=== PATIENT | female | born 1965 | race Caucasian/White ===

== ENCOUNTER 2018-05-08 11:11 | Inpatient (IN) | payer OTHER ==
[2018-05-08 11:27] VITALS: BMI 29.9
--- NOTE | 2018-05-08 11:40 | PDOC ---
History of Present Illness - General Chief Complaint: Weakness Stated Complaint: WEAKNESS Time Seen by Provider: 05/08/18 11:39 History Source: Patient Exam Limitations: No Limitations - History of Present Illness Initial Comments: 05/08/18 12:07 53 year old female with past medical history of seizure disorder, severe MR, gastritis, H pylori, urinary incontinence, cholecystectomy presented to emergency department for altered mental status times two days. The medical aid states that normally at baseline she is nonverbal, but that she is able to ambulate on her own unassisted, and that she will feed herself on her own. He states that over the last two days she has not been able to feed herself and have not had the strength to get up and walk around on her own. He states that they have also known a right-sided facial droop and that she is leaning to the right side. He states that he does not know when the first time they discovered this is, that this has happened to her before, when she was admitted to the hospital for sepsis. He states that two days ago she fell, and he does not know if she had hit her head, but that she was discovered with a bleeding lip. Allergies - ibuprofen, ASA Seizure meds: Lamictal 25 mg in AM and 200 mg BID Vempat 100 mg BID Past History - Past Medical History Allergies/Adverse Reactions: Allergies Allergy/AdvReac Type Severity Reaction Status Date / Time aspirin Allergy Verified 05/08/18 11:21 ibuprofen Allergy Verified 05/08/18 11:21 Home Medications: Ambulatory Orders Aripiprazole 10 mg PO DAILY 05/08/18 Clonazepam 0.25 mg PO AM 05/08/18 Lacosamide [Vimpat] 1 each PO BID 05/08/18 Lamotrigine [Lamictal] 25 mg PO AM 05/08/18 Lamotrigine [Lamictal] 200 mg PO BID 05/08/18 Paroxetine HCl 20 mg PO DAILY 05/08/18 levETIRAcetam [Keppra -] 500 mg PO BID 05/08/18 Anemia: Yes COPD: No Seizures: Yes Other medical history: profound MR, scoliosis - Surgical History Cholecystectomy: Yes - Suicide/Smoking/Psychosocial Hx Smoking History: Never smoked Review of Systems - Review of Systems Able to Perform ROS?: Yes Comments:: 05/08/18 12:12 ROM limited to information provided by medical aid. General: denies fever, chills, night sweats, generalized weakness. HEENT: denies sore throat, rhinorrhea, ear pain. Heart: denies chest pain, palpitations, syncope, lower extremity swelling, diaphoresis. Respiratory: denies shortness of breath, cough, sputum production, hemoptysis. Abdomen: denies abdominal pain, nausea, vomiting, diarrhea, constipation, blood in stool. : denies increased urinary frequency, hematuria, flank pain. Musculoskeletal: admits to right arm swelling. Neurological: admits to right facial drooping, altered mental status. Skin: denies rash, laceration, abrasion. *Physical Exam - Vital Signs Last Vital Signs Temp Pulse Resp BP Pulse Ox 60 20 103/47 L 94 L 05/08/18 11:21 05/08/18 11:21 05/08/18 11:21 05/08/18 11:21 - Physical Exam Comments: 05/08/18 12:16 Constitutional: Well-nourished, Well-developed, appearing stated age. leaning to the right. HEENT: head is normocephalic, atraumatic. EOMI. PERRLA. scab to upper lip. Neck: supple. Full ROM. Heart: regular rhythm. no murmurs, rubs or gallops. Lungs: clear to auscultation bilaterally. no crackles, rhonchi or wheezing. no stridor. Abdomen: soft, nontender. normal bowel sounds. no rebound, guarding, masses. Extremities: right arm more swollen than left. Peripheral pulses intact. No lower extremity edema. Neurological: right sided mouth drooping, unable to perform complete neurological examination due to mental status. Psych: awake, sleepy. does not follow commands. nonverbal, at baseline. ED Treatment Course - LABORATORY CBC & Chemistry Diagram: 05/09/18 06:40 05/09/18 06:40 Medical Decision Making - Medical Decision Making 05/08/18 12:27 53 year old female with past medical history of seizure disorder, severe MR, gastritis, H pylori, urinary incontinence, cholecystectomy presented to emergency department for altered mental status x2 days. Nonverbal at baseline. Initial Vital Signs Pulse Resp BP Pulse Ox 60 20 103/47 L 94 L 05/08/18 11:21 05/08/18 11:21 05/08/18 11:21 05/08/18 11:21 No tachycardia. No bradycardia. Hypotensive. - 1L IVF bolus Satting 94% on room air. Concern for ACS/arrythmia - EKG performed at 1225 - rate 59, regulary rhythm, left axis, normal intervals , no acute ST changes. Concern for TIA - Pending CT head - Stroke labs Concern for sepsis - Rectal temp ordered - Pending CBC, UA/UC, blood culture, CXR Concern for electrolyte abnormality - Pending CMP Concern for DVT in right arm - Pending US 05/08/18 13:34 CXR - apical lordotic projection with elevated right hemidiaphragm, clear lung bases and no sign of acute chest process. 05/08/18 14:59 Rectal temperature 96.6F Right arm duplex US - no DVT to right arm. 05/08/18 15:44 Straight cath attempted by RN, was unsuccessful, pt has abnormal anatomy. Straight cath attempted by Dr. Taylor, was unsuccessful. Medical aid states that he has been told that she has abnormal anatomy and a urologist is usually required to catheterize her. Pt's personal urologist paged, Dr. Streeter, at [phone]. CT head report - mild volume loss and ventriculomegaly with moderate dilation of the lateral ventricles. no mass lesion or infarct. no acute intracranial pathology noted. CBC WBC 5.0 K/mm3 (4.0-10.0) 05/08/18 12:45 RBC 4.18 M/mm3 (3.60-5.2) 05/08/18 12:45 Hgb 11.9 GM/dL (10.7-15.3) 05/08/18 12:45 Hct 36.9 % (32.4-45.2) 05/08/18 12:45 MCV 88.3 fl (80-96) 05/08/18 12:45 MCH 28.4 pg (25.7-33.7) 05/08/18 12:45 MCHC 32.2 g/dl (32.0-36.0) 05/08/18 12:45 RDW 14.0 % (11.6-15.6) 05/08/18 12:45 Plt Count 192 K/MM3 (134-434) 05/08/18 12:45 MPV 9.0 fl (7.5-11.1) 05/08/18 12:45 Absolute Neuts (auto) 2.9 K/mm3 (1.5-8.0) 05/08/18 12:45 Neutrophils % 58.0 % (42.8-82.8) 05/08/18 12:45 Lymphocytes % 28.0 % (8-40) 05/08/18 12:45 Monocytes % 7.8 % (3.8-10.2) 05/08/18 12:45 Eosinophils % 5.7 % (0-4.5) H 05/08/18 12:45 Basophils % 0.5 % (0-2.0) 05/08/18 12:45 Nucleated RBC % 0 % (0-0) 05/08/18 12:45 No leukocytosis. No anemia. CMP Lactic Acid 0.9 mmol/L (0.4-2.0) 05/08/18 12:45 Lactate normal. Chemistry hemolyzed, will redraw. 05/08/18 17:34 I spoke with pt's personal urologist, Dr. Streeter, who states that he does not come to [facility]. Urology contact center manager paged. Joiesyn ordered for suspected UTI. CMP Sodium 145 mmol/L (136-145) 05/08/18 15:20 Potassium 4.6 mmol/L (3.5-5.1) 05/08/18 15:20 Chloride 110 mmol/L (98-107) H 05/08/18 15:20 Carbon Dioxide 27 mmol/L (21-32) 05/08/18 15:20 Anion Gap 8 MMOL/L (8-16) 05/08/18 15:20 BUN 18 mg/dL (7-18) 05/08/18 15:20 Creatinine 0.5 mg/dL (0.55-1.3) L 05/08/18 15:20 Creat Clearance w eGFR > 60 (>60) 05/08/18 15:20 Random Glucose 72 mg/dL (74-106) L 05/08/18 15:20 Lactic Acid 0.9 mmol/L (0.4-2.0) 05/08/18 12:45 Calcium 9.3 mg/dL (8.5-10.1) 05/08/18 15:20 Total Bilirubin 0.3 mg/dL (0.2-1) 05/08/18 15:20 AST 57 U/L (15-37) H 05/08/18 15:20 ALT 51 U/L (13-61) 05/08/18 15:20 Alkaline Phosphatase 175 U/L (45-117) H 05/08/18 15:20 Creatine Kinase 608 IU/L (26-192) H 05/08/18 15:20 Creatine Kinase Index 4.0 % (0.0-5.0) 05/08/18 15:20 CK-MB (CK-2) 24.5 ng/mL (0.5-3.6) H 05/08/18 15:20 Troponin I < 0.02 ng/ml (0.00-0.05) 05/08/18 15:20 Total Protein 6.6 g/dl (6.4-8.2) 05/08/18 15:20 Albumin 3.3 g/dl (3.4-5.0) L 05/08/18 15:20 Triglycerides Cancelled 05/08/18 12:45 Cholesterol 224 mg/dL (50-200) H 05/08/18 14:57 Total LDL Cholesterol 124 mg/dL (5-100) H 05/08/18 14:57 HDL Cholesterol 93 mg/dL (40-60) H 05/08/18 14:57 Serum , Qual Negative 05/08/18 12:45 Normal electrolytes. No acute kidney injury. Elevated CK Elevated lipids. 05/08/18 17:53 Dr. Becerra was able to straight cath patient. Urine sample sent to lab. I spoke with admitting resident, Dr. Clark, about the case, pt will be admitted to Dr. Yeh's service. 05/08/18 17:56 Urine Test Results Urine Color Yellow 05/08/18 17:35 Urine Appearance Clear 05/08/18 17:35 Urine pH 6.0 (5.0-8.0) 05/08/18 17:35 Ur Specific [place] 1.019 (1.010-1.035) 05/08/18 17:35 Urine Protein Negative (NEGATIVE) 05/08/18 17:35 Urine Glucose (UA) Negative (NEGATIVE) 05/08/18 17:35 Urine Ketones Negative (NEGATIVE) 05/08/18 17:35 Urine Blood 1+ (NEGATIVE) H 05/08/18 17:35 Urine Nitrite Negative (NEGATIVE) 05/08/18 17:35 Urine Bilirubin Negative (<2.0 mg/dL) 05/08/18 17:35 Ur Leukocyte Esterase 1+ (NEGATIVE) H 05/08/18 17:35 Ur Epithelial Cells Rare /HPF (FEW) 05/08/18 17:35 Urine Mucus Rare 05/08/18 17:35 >100 WBC Urinary tract infection likely. - Pt already received Zosyn. *DC/Admit/Observation/Transfer Diagnosis at time of Disposition: Altered mental status, Urinary tract infection - Discharge Dispostion Condition at time of disposition: Stable Decision to Admit order: Yes - Referrals - Patient Instructions - Post Discharge Activity
[2018-05-08] MEDS ORDERED: SODIUM CHLORIDE 1,000 ML IV SCH (12:15)
[2018-05-08 13:04] LABS: BASO % 0.5 % (0-2.0); EOS % 5.7 % (0-4.5); HEMATOCRIT 36.9 % (32.4-45.2); HEMOGLOBIN 11.9 GM/dL (10.7-15.3); MCH 28.4 pg (25.7-33.7); MCHC 32.2 g/dl (32.0-36.0); MEAN CELL VOLUME 88.3 fl (80-96); MONO % 7.8 % (3.8-10.2); PLATELET COUNT 192 K/MM3 (134-434); RBC 4.18 M/mm3 (3.60-5.2)
[2018-05-08 13:28] LABS: INR 0.88 (0.83-1.09); PROTHROMBIN TIME (PATIENT) 10.4 SEC (9.7-13.0)
--- NOTE | 2018-05-08 13:34 | PDOC ---
Attending Attestation - Resident Resident Name: Sarita South - ED Attending Attestation I have performed the following: I have examined & evaluated the patient, The case was reviewed & discussed with the resident, I agree w/resident's findings & plan, Exceptions are as noted <Radha Taylor - Last Filed: 05/08/18 13:34> - HPI HPI: 05/08/18 13:49 The patient is a 53-year-old female with past medical history significant for MR , and Autism presents from a [facility] with weakness and AMS. As per the aide, the patient is non-verbal and ambulatory at baseline. The patient was able to ambulate to the bathroom and feed herself without assistance. The aide reports he had noticed a change in patients behavior; patient's been endorsing decreased strength with ambulation, unable to feed herself and increased lethargy. The aide reports he has noticed a right-sided facial droop, unknown onset. The aide reports swelling to the upper extremity, with R. more than L. The aide reports a similar incident about a year prior when the patient was septic. Allergies: ASA and ibuprofen. Social history: No past or present use of tobacco reported. Surgical history: Cholecystectomy PCP: None reported. - Medical Decision Making 05/08/18 13:49 Documentation prepared by Lina Blue, acting as medical collector for Radha aTylor MD. 05/08/18 15:42 Called placed to urologist Dr. Lin ([phone]), at 3:41pm. <Lina Blue - Last Filed: 05/08/18 15:42>
[2018-05-08 16:01] LABS: CHOLESTEROL 224 mg/dL (50-200); HDL CHOLESTEROL 93 mg/dL (40-60)
[2018-05-08 17:21] LABS: ALBUMIN 3.3 g/dl (3.4-5.0); ALK PHOS 175 U/L (45-117); ANION GAP 8 MMOL/L (8-16); BILIRUBIN,TOTAL 0.3 mg/dL (0.2-1); BLOOD UREA NITROGEN 18 mg/dL (7-18); CALCIUM 9.3 mg/dL (8.5-10.1); CHLORIDE 110 mmol/L (98-107); CO2 27 mmol/L (21-32); CREATININE 0.5 mg/dL (0.55-1.3); GLUCOSE,RANDOM 72 mg/dL (74-106); POTASSIUM 4.6 mmol/L (3.5-5.1); SGOT/AST 57 U/L (15-37); SGPT/ALT 51 U/L (13-61); SODIUM 145 mmol/L (136-145); TOT PROT 6.6 g/dl (6.4-8.2)
[2018-05-08] MEDS ORDERED: PIPERACILLIN/TAZOB 3.375 GM 3.375 GM in DEXTROSE 5%-WATER - 50 ML IVPB ONE (17:23)
[2018-05-08] MEDS ORDERED: LACTATED RINGERS SOLUTION 1,000 ML IV SCH (17:45)
[2018-05-08 18:04] LABS: URINE APPEARANCE CLEAR; URINE BILIRUBIN NEGATIVE (<2.0 mg/dL); URINE COLOR YELLOW; URINE GLUCOSE (UA) NEGATIVE (NEGATIVE); URINE KETONE NEGATIVE (NEGATIVE); URINE LEUK ESTERASE 1+ (NEGATIVE); URINE NITRITE NEGATIVE (NEGATIVE); URINE PROTEIN NEGATIVE (NEGATIVE); URINE UROBILINOGEN NEGATIVE mg/dL (0.2-1.0)
[2018-05-08] MEDS ORDERED: PIPERACILLIN/TAZOB 3.375 GM 3.375 GM/50 ML BAG IVPB ONE ×2 (18:05→21:30)
[2018-05-08 18:07] LABS: EPI CELLS RARE /HPF (FEW); URINE MUCUS RARE
--- NOTE | 2018-05-08 18:38 | PN ---
Teaching Attending Note Name of Resident: Sebastian Clark ATTENDING PHYSICIAN STATEMENT I saw and evaluated the patient. I reviewed the resident's note and discussed the case with the resident. I agree with the resident's findings and plan as documented. HPI is per aid at bedside as pt is nonverbal [facility]IVE[facility]53[facility], [facility], Domenic, urinary incontinence with frequent UTI presented to the ER [facility] altered mental status for the past 2 days. at baseline she is able to feed herself and able to walk with some assistance, neither of which she has been able to do. On Friday (05/04 ) she had a witnessed seizure. Friday (05/06) she fell out of the bed striking her face on the floor sustaining a swollen and bleeding upper lip. went to [facility] where she was evaluated in the ER with imaging and sent home. It has been improving with ice packets. as per aid she is noverbal. usually grimaces a lot and grunts. currently she has returned to her baseline. denies Cp , SOB, fever, chills, N/V/C/D. has not seem to have anything bothering her. does not know the last time she was treated for a UTI OBJECTIVE: Last Vital Signs Temp Pulse Resp BP Pulse Ox 95.6 F L 68 18 108/49 L 98 05/08/18 16:01 05/08/18 14:00 05/08/18 14:00 05/08/18 14:00 05/08/18 14:00 General NAD, nonverbal. HEENT swollen upper lip. abrasion noted to R upper outer 1/3 no active bleeding CV S1 S2 RRR no murmur/rub/gallop Lungs CTA B/L no wheezing/rales/rhonchi Abdomen soft NT/ND no suprapubic tenderness or distention Extremities trace pitting edema ASSESSMENT AND PLAN: 53[facility], [facility], Domenic, urinary incontinence with frequent UTI presented to the ER [facility] altered mental status for the past 2 days and noted to be hypothermia with suspected UTI 1. UTI- Hypothermic at 95.6. will need a christiane hugger. Urology came to [facility] due to abnormal anatomy was unable to place by ER staff. started on Zosyn in the ER. cont NS at 83cc/H. ID consult. f/u Cx. doppler neg for DVT. CXR negative for infection. requested aid to bring in previous Cx reports if they have them at the facility 2. Acute metabolic encephalopathy- likely due to infection and dehydration. Head CT negative for acute pathology. as per aid her mental status is back to baseline 3. Seizure- last seizure noted to be Friday. likely breakthrough due to infection. no adjustments made to medication. cont home medications 4. MR 5. Hpylori- unclear if it has been treated 6. DVT ppx- lovenox
--- NOTE | 2018-05-08 19:03 | HP ---
CHIEF COMPLAINT: AMS HISTORY OF PRESENT ILLNESS: 53 year old female with a history of seizures, MR, gastritis (H pylori), urinary incontinence, multiple UTIs, presents to the hospital for altered mental status 2 days duration. Patient's aid states that at baseline, patient is non-verbal but is able to ambulate with an abnormal gait and can feed herself. Aid noticed that patient was not able to feed herself and felt too weak to move, and so they brought patient to emergency department as this was off her baseline. Per aid, patient has a R sided facial droop around the upper lip which he states has occurred in the past when patient was "septic" from UTIs. Reports that patient has had a seizure on Friday and fell on Friday ( injuring her upper lip). Denies any nausea vomiting/diarrhea, fevers, chills. Reports that this has happened in the past. Reports that while the patient has been here, she is currently at her baseline. Aid denied sick contacts. ER course was notable for: (1) CK 608 (2) Temp 95.6 --> repeated 95.2 (3) Recent Travel: denies PAST MEDICAL HISTORY: as stated above PAST SURGICAL HISTORY: cholecystectomy Social History: Smoking: never Alcohol: never Drugs: never Family History: unknown Allergies aspirin Allergy (Verified 05/08/18 11:21) ibuprofen Allergy (Verified 05/08/18 11:21) HOME MEDICATIONS: Home Medications Medication Instructions Recorded Lacosamide [Vimpat] 1 each PO BID 05/08/18 Lamotrigine [Lamictal] 25 mg PO AM 05/08/18 Lamotrigine [Lamictal] 200 mg PO BID 05/08/18 REVIEW OF SYSTEMS CONSTITUTIONAL: Absent: fever, chills, diaphoresis, generalized weakness, malaise, loss of appetite, weight change HEENT: Absent: rhinorrhea, nasal congestion, throat pain, throat swelling, difficulty swallowing, mouth swelling, ear pain, eye pain, visual changes CARDIOVASCULAR: Absent: chest pain, syncope, palpitations, irregular heart rate, lightheadedness , peripheral edema RESPIRATORY: Absent: cough, shortness of breath, dyspnea with exertion, orthopnea, wheezing, stridor, hemoptysis GASTROINTESTINAL: Absent: abdominal pain, abdominal distension, nausea, vomiting, diarrhea, constipation, melena, hematochezia GENITOURINARY: Absent: dysuria, frequency, urgency, hesitancy, hematuria, flank pain, genital pain MUSCULOSKELETAL: Absent: myalgia, arthralgia, joint swelling, back pain, neck pain SKIN: Absent: rash, itching, pallor HEMATOLOGIC/IMMUNOLOGIC: Absent: easy bleeding, easy bruising, lymphadenopathy, frequent infections ENDOCRINE: Absent: unexplained weight gain, unexplained weight loss, heat intolerance, cold intolerance NEUROLOGIC: Absent: headache, focal weakness or paresthesias, dizziness, unsteady gait, seizure, mental status changes, bladder or bowel incontinence PSYCHIATRIC: Absent: anxiety, depression, suicidal or homicidal ideation, hallucinations. PHYSICAL EXAMINATION Vital Signs - 24 hr 05/08/18 05/08/18 05/08/18 11:21 11:40 14:00 Temperature 96.6 F L Pulse Rate 60 Pulse Rate [ 68 Right] Respiratory 20 18 Rate Blood Pressure 103/47 L Blood Pressure 108/49 L [Right Arm] O2 Sat by Pulse 94 L 98 98 Oximetry (%) 05/08/18 05/08/18 16:01 18:38 Temperature 95.6 F L 95.2 F L Pulse Rate Pulse Rate [ Right] Respiratory Rate Blood Pressure Blood Pressure [Right Arm] O2 Sat by Pulse Oximetry (%) GENERAL: A&Ox0, no acute distress EYES: PERRLA, EOMI ENT: Moist mucus membranes, poor dentition, non-bleeding bruise noted on upper lip NECK: No JVD LUNGS: CTA, no wheezes HEART: RRR, systolic murmur noted on exam ABDOMEN: Soft, nontender, BS present EXTREMITIES: 2+ pulses, no edema, no skin rashes NEUROLOGICAL: reflexes 2/4, unable to assess cranial nerves Laboratory Results - last 24 hr 05/08/18 05/08/18 05/08/18 12:45 12:45 12:45 WBC 5.0 RBC 4.18 Hgb 11.9 Hct 36.9 MCV 88.3 MCH 28.4 MCHC 32.2 RDW 14.0 Plt Count 192 MPV 9.0 Absolute Neuts (auto) 2.9 Neutrophils % 58.0 Lymphocytes % 28.0 Monocytes % 7.8 Eosinophils % 5.7 H Basophils % 0.5 Nucleated RBC % 0 PT with INR 10.40 INR 0.88 Sodium Potassium Chloride Carbon Dioxide Anion Gap BUN Creatinine Creat Clearance w eGFR Random Glucose Lactic Acid Calcium Total Bilirubin AST ALT Alkaline Phosphatase Creatine Kinase Creatine Kinase Index CK-MB (CK-2) Troponin I Total Protein Albumin Triglycerides Cholesterol Total LDL Cholesterol HDL Cholesterol Serum , Qual Negative Urine Color Urine Appearance Urine pH Ur Specific [place] Urine Protein Urine Glucose (UA) Urine Ketones Urine Blood Urine Nitrite Urine Bilirubin Urine Urobilinogen Ur Leukocyte Esterase Urine WBC (Auto) Urine RBC (Auto) Ur Epithelial Cells Urine Mucus Blood Type Antibody Screen 05/08/18 05/08/18 05/08/18 12:45 12:45 12:45 WBC RBC Hgb Hct MCV MCH MCHC RDW Plt Count MPV Absolute Neuts (auto) Neutrophils % Lymphocytes % Monocytes % Eosinophils % Basophils % Nucleated RBC % PT with INR INR Sodium Cancelled Potassium Cancelled Chloride Cancelled Carbon Dioxide Cancelled Anion Gap Cancelled BUN Cancelled Creatinine Cancelled Creat Clearance w eGFR Cancelled Random Glucose Cancelled Lactic Acid 0.9 Calcium Cancelled Total Bilirubin Cancelled AST Cancelled ALT Cancelled Alkaline Phosphatase Cancelled Creatine Kinase Cancelled Creatine Kinase Index CK-MB (CK-2) Troponin I Cancelled Total Protein Cancelled Albumin Cancelled Triglycerides Cancelled Cholesterol Cancelled Total LDL Cholesterol Cancelled HDL Cholesterol Cancelled Serum , Qual Urine Color Urine Appearance Urine pH Ur Specific [place] Urine Protein Urine Glucose (UA) Urine Ketones Urine Blood Urine Nitrite Urine Bilirubin Urine Urobilinogen Ur Leukocyte Esterase Urine WBC (Auto) Urine RBC (Auto) Ur Epithelial Cells Urine Mucus Blood Type O POSITIVE Antibody Screen Negative 05/08/18 05/08/18 05/08/18 14:57 14:57 15:20 WBC RBC Hgb Hct MCV MCH MCHC RDW Plt Count MPV Absolute Neuts (auto) Neutrophils % Lymphocytes % Monocytes % Eosinophils % Basophils % Nucleated RBC % PT with INR INR Sodium 145 Potassium 4.6 Chloride 110 H Carbon Dioxide 27 Anion Gap 8 BUN 18 Creatinine 0.5 L Creat Clearance w eGFR > 60 Random Glucose 72 L Lactic Acid Calcium 9.3 Total Bilirubin 0.3 AST 57 H ALT 51 Alkaline Phosphatase 175 H Creatine Kinase Cancelled 608 H Creatine Kinase Index 4.0 CK-MB (CK-2) 24.5 H Troponin I Cancelled < 0.02 Total Protein 6.6 Albumin 3.3 L Triglycerides Cholesterol 224 H Total LDL Cholesterol 124 H HDL Cholesterol 93 H Serum , Qual Urine Color Urine Appearance Urine pH Ur Specific [place] Urine Protein Urine Glucose (UA) Urine Ketones Urine Blood Urine Nitrite Urine Bilirubin Urine Urobilinogen Ur Leukocyte Esterase Urine WBC (Auto) Urine RBC (Auto) Ur Epithelial Cells Urine Mucus Blood Type Antibody Screen 05/08/18 05/08/18 15:20 17:35 WBC RBC Hgb Hct MCV MCH MCHC RDW Plt Count MPV Absolute Neuts (auto) Neutrophils % Lymphocytes % Monocytes % Eosinophils % Basophils % Nucleated RBC % PT with INR INR Sodium Potassium Chloride Carbon Dioxide Anion Gap BUN Creatinine Creat Clearance w eGFR Random Glucose Lactic Acid Calcium Total Bilirubin AST ALT Alkaline Phosphatase Creatine Kinase Creatine Kinase Index Cancelled CK-MB (CK-2) Cancelled Troponin I Total Protein Albumin Triglycerides Cholesterol Total LDL Cholesterol HDL Cholesterol Serum , Qual Urine Color Yellow Urine Appearance Clear Urine pH 6.0 Ur Specific [place] 1.019 Urine Protein Negative Urine Glucose (UA) Negative Urine Ketones Negative Urine Blood 1+ H Urine Nitrite Negative Urine Bilirubin Negative Urine Urobilinogen Negative Ur Leukocyte Esterase 1+ H Urine WBC (Auto) >100 Urine RBC (Auto) 22 Ur Epithelial Cells Rare Urine Mucus Rare Blood Type Antibody Screen ASSESSMENT/PLAN: 53 year old female with a history of seizures, MR, gastritis (H pylori), urinary incontinence, multiple UTIs, presents to the hospital for altered mental status 2 days duration. #Hypothermia: likely 2/2 UTI -patient does not meet sepsis criteria -will hydrate with LR @ 83cc/hr -zosyn 3.375 Q6h -ID consulted -christiane french ordered -monitor temperature #Altered mental status: patient is currently at baseline -monitor mental status #Seizure disorder: chronic -restart lamictal and vimpat -restart keppra 500 BID #Anxiety: -clonazepam 0.25 at 4pm -paroxetine 20mg daily -aripiprazole 10mg daily #FEN -LR @ 83cc/hr -no standing fluids -bedside swallow and restart diet, can give meds #Prophylaxis -lovenox #Disposition -admit med surg Visit type - Emergency Visit Emergency Visit: Yes Care time: The patient presented to the Emergency Department on the above date and was hospitalized for further evaluation of their emergent condition. - New Patient This patient is new to me today: Yes Date on this admission: 05/08/18 - Critical Care Critical Care patient: No
[2018-05-08] MEDS ORDERED: levETIRAcetam 500 MG TABLET (FP) PO ONE (21:29)
[2018-05-08] MEDS ORDERED: LACOSAMIDE 50 MG TABLET PO ONE (21:29)
[2018-05-08] MEDS ORDERED: LACOSAMIDE PO SCH (22:00)
[2018-05-08] MEDS: PIPERACILLIN/TAZOB 3.375 GM 3.375 GM in DEXTROSE 5%-WATER - 50 ML IVPB SCH (22:00)
[2018-05-08] MEDS: LACOSAMIDE 50 MG TABLET PO SCH (22:15)
[2018-05-08] MEDS: levETIRAcetam 500 MG TABLET (FP) PO SCH (22:15)
[2018-05-09] MEDS: PIPERACILLIN/TAZOB 3.375 GM 3.375 GM in DEXTROSE 5%-WATER - 50 ML IVPB SCH ×3 (03:10→16:25)
[2018-05-09 07:51] LABS: HEMATOCRIT 30.4 % (32.4-45.2); MCHC 32.9 g/dl (32.0-36.0); MEAN CELL VOLUME 88.1 fl (80-96); MEAN PLT VOLUME 8.8 fl (7.5-11.1); PLATELET COUNT 176 K/MM3 (134-434); RBC 3.45 M/mm3 (3.60-5.2); RDW 13.8 % (11.6-15.6); WHITE BLOOD COUNT 4.8 K/mm3 (4.0-10.0)
[2018-05-09 08:33] LABS: ALK PHOS 150 U/L (45-117); ANION GAP 7 MMOL/L (8-16); BILIRUBIN,TOTAL 0.7 mg/dL (0.2-1); BLOOD UREA NITROGEN 16 mg/dL (7-18); CALCIUM 8.3 mg/dL (8.5-10.1); CHLORIDE 108 mmol/L (98-107); CO2 29 mmol/L (21-32); CREATININE 0.6 mg/dL (0.55-1.3); GLUCOSE,RANDOM 61 mg/dL (74-106); MAGNESIUM 1.7 mg/dL (1.8-2.4); PHOSPHOROUS 4.4 mg/dL (2.5-4.9); POTASSIUM 3.9 mmol/L (3.5-5.1); SGOT/AST 45 U/L (15-37); SGPT/ALT 42 U/L (13-61); SODIUM 144 mmol/L (136-145); TOT PROT 5.8 g/dl (6.4-8.2)
[2018-05-09] MEDS ORDERED: DEXTROSE 5%-WATER - 50 ML IVPB ONE ×3 (09:12→16:32)
[2018-05-09] MEDS ORDERED: PARoxetine HCL 10 MG TABLET (FP) ONE (09:12)
[2018-05-09] MEDS ORDERED: PIPERACILLIN/TAZOBACTAM 3.375 GM VIAL IVPB ONE ×2 (09:12→13:36)
--- NOTE | 2018-05-09 10:10 | PN ---
Progress Note (short form) - Note Progress Note: resting comfortable Current Medications Generic Name Dose Route Start Last Admin Trade Name Ketnonq PRN Reason Stop Dose Admin Aripiprazole 10 mg 05/09/18 10:00 Abilify PO DAILY MERYL Clonazepam 0.25 mg 05/09/18 07:00 Klonopin - PO AM MERYL Enoxaparin Sodium 40 mg 05/09/18 10:00 Lovenox - SQ DAILY MERYL Sodium Chloride 1,000 mls @ 42 mls/hr 05/08/18 12:15 05/08/18 13:08 Normal Saline - IV 42 mls/hr ASDIR MERYL Administration Piperacillin Sod/Tazobactam 50 mls @ 100 mls/hr 05/08/18 21:00 05/09/18 03:10 Sod 3.375 gm/ Dextrose IVPB 100 mls/hr Q6H-IV MERYL Administration Protocol Lacosamide 100 mg 05/08/18 22:00 05/08/18 22:15 Vimpat - PO 100 mg BID MERYL Administration Lamotrigine 25 mg 05/09/18 07:00 Lamictal - PO AM MERYL Lamotrigine 200 mg 05/09/18 10:00 Lamictal - PO BID MERYL Levetiracetam 500 mg 05/08/18 22:00 05/08/18 22:15 Keppra - PO 500 mg BID MERYL Administration Paroxetine HCl 20 mg 05/09/18 10:00 Paxil - PO DAILY MERYL Last Vital Signs Temp Pulse Resp BP Pulse Ox 99.5 F 77 16 114/64 94 L 05/09/18 04:06 05/09/18 04:06 05/09/18 04:06 05/09/18 04:06 05/09/18 04:06 General NAD, nonverbal. HEENT swollen upper lip. abrasion noted to R upper outer 1/3 no active bleeding CV S1 S2 RRR no murmur/rub/gallop Lungs CTA B/L no wheezing/rales/rhonchi Abdomen soft NT/ND no suprapubic tenderness or distention Extremities no pitting edema CBCD WBC 4.8 K/mm3 (4.0-10.0) 05/09/18 06:40 RBC 3.45 M/mm3 (3.60-5.2) L 05/09/18 06:40 Hgb 10.0 GM/dL (10.7-15.3) L 05/09/18 06:40 Hct 30.4 % (32.4-45.2) L D 05/09/18 06:40 MCV 88.1 fl (80-96) 05/09/18 06:40 MCHC 32.9 g/dl (32.0-36.0) 05/09/18 06:40 RDW 13.8 % (11.6-15.6) 05/09/18 06:40 Plt Count 176 K/MM3 (134-434) 05/09/18 06:40 MPV 8.8 fl (7.5-11.1) 05/09/18 06:40 CMP Sodium 144 mmol/L (136-145) 05/09/18 06:40 Potassium 3.9 mmol/L (3.5-5.1) 05/09/18 06:40 Chloride 108 mmol/L (98-107) H 05/09/18 06:40 Carbon Dioxide 29 mmol/L (21-32) 05/09/18 06:40 Anion Gap 7 MMOL/L (8-16) L 05/09/18 06:40 BUN 16 mg/dL (7-18) 05/09/18 06:40 Creatinine 0.6 mg/dL (0.55-1.3) 05/09/18 06:40 Creat Clearance w eGFR > 60 (>60) 05/09/18 06:40 Calcium 8.3 mg/dL (8.5-10.1) L 05/09/18 06:40 Total Bilirubin 0.7 mg/dL (0.2-1) 05/09/18 06:40 AST 45 U/L (15-37) H 05/09/18 06:40 ALT 42 U/L (13-61) 05/09/18 06:40 Alkaline Phosphatase 150 U/L (45-117) H 05/09/18 06:40 Total Protein 5.8 g/dl (6.4-8.2) L 05/09/18 06:40 Albumin 3.0 g/dl (3.4-5.0) L 05/09/18 06:40 ASSESSMENT AND PLAN: 53[facility], MR, Hpylori, urinary incontinence with frequent UTI presented to the ER [facility] altered mental status for the past 2 days and noted to be hypothermia with suspected UTI 1. UTI- normothermic. clinically improved. cont zosyn day 2. d/c IVF. f/u Cx. ID consulted. 2. Acute metabolic encephalopathy- likely due to infection and dehydration. Head CT negative for acute pathology. is alert. appears to be at baseline. 3. hypomagnesemia- Mg po 4. Seizure- last seizure noted to be Friday. likely breakthrough due to infection. no adjustments made to medication. cont home medications 5. MR 6. Hpylori- unclear if it has been treated 7. DVT ppx- lovenox Visit type - Emergency Visit Emergency Visit: Yes ED Registration Date: 05/08/18 Care time: The patient presented to the Emergency Department on the above date and was hospitalized for further evaluation of their emergent condition. - New Patient This patient is new to me today: No - Critical Care Critical Care patient: No - Discharge Referral Referred to [facility] Med P.C.: No
[2018-05-09] MEDS ORDERED: MAGNESIUM OXIDE 400 MG TABLET (FP) PO ONE (10:32)
[2018-05-09] MEDS: LACOSAMIDE 50 MG TABLET PO SCH ×2 (10:58→21:55)
[2018-05-09] MEDS: PARoxetine HCL 20 MG TABLET (FP) PO SCH (10:58)
[2018-05-09] MEDS: lamoTRIgine 100 MG TABLET (FP) PO SCH ×2 (10:59→21:56)
[2018-05-09] MEDS: levETIRAcetam 500 MG TABLET (FP) PO SCH ×2 (10:59→21:55)
[2018-05-09] MEDS: ENOXAPARIN NA (PORCINE) 40 MG/0.4 ML DISP.SYRIN SQ SCH (10:59)
[2018-05-09] MEDS: clonazePAM 0.5 MG TABLET PO SCH (10:59)
[2018-05-09] MEDS: lamoTRIgine 25 MG TABLET PO SCH (11:00)
--- NOTE | 2018-05-09 15:06 | CON.ID ---
Consult Consult Specialty:: infectious disease Referred by:: hospitalist Reason for Consultation:: uti - History of Present Illness Chief Complaint: lethargy History of Present Illness: 53 yo female with seizure disorder/MR/autism admitted with lethargy and hypothermia she had a seizure on Friday and was evaluated at [facility] and dischareged home she was noted to be lethargic and brought to [facility] w/ in Ed notable for UTI hypothermia now resolved per nurse ate lunch aide reports back at baseline no fevers has been on zosyn for 24 hours history of frequent utis nonverbal at baseline - History Source History Provided By: Medical Record Limitations to Obtaining History: Clinical Condition - Past Medical History 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, Other (MR/autism) Renal/: Yes: UTI, Other (urinary incontinence) - Past Surgical History Past Surgical History: Yes: Cholecystectomy - Alcohol/Substance Use Hx Alcohol Use: No History of Substance Use: reports: None - Smoking History Smoking history: Never smoked - Social History Usual Living Arrangement: Assisted Living ADL: Support Services History of Recent Travel: No Home Medications - Allergies Allergies/Adverse Reactions: Allergies Allergy/AdvReac Type Severity Reaction Status Date / Time aspirin Allergy Verified 05/08/18 11:21 ibuprofen Allergy Verified 05/08/18 11:21 - Home Medications Home Medications: Ambulatory Orders Aripiprazole 10 mg PO DAILY 05/08/18 Clonazepam 0.25 mg PO AM 05/08/18 Lacosamide [Vimpat] 1 each PO BID 05/08/18 Lamotrigine [Lamictal] 25 mg PO AM 05/08/18 Lamotrigine [Lamictal] 200 mg PO BID 05/08/18 Paroxetine HCl 20 mg PO DAILY 05/08/18 levETIRAcetam [Keppra -] 500 mg PO BID 05/08/18 Family Disease History - Family Disease History Family History: Unable to Obtain Physical Exam Vital Signs: Vital Signs Temperature 97.2 F L 05/09/18 14:11 Pulse Rate 87 05/09/18 14:11 Respiratory Rate 20 05/09/18 14:11 Blood Pressure 122/61 05/09/18 14:11 O2 Sat by Pulse Oximetry (%) 94 L 05/09/18 04:06 Constitutional: Yes: No Distress, Calm Eyes: Yes: Conjunctiva Clear HENT: Yes: Atraumatic, Normocephalic, Other (swollen uppr lip (recent fall)) Neck: Yes: Supple Cardiovascular: Yes: Regular Rate and Rhythm Respiratory: Yes: Regular, CTA Bilaterally Gastrointestinal: Yes: Normal Bowel Sounds, Soft, Other (no suprapubic pain). No: Tenderness Renal/: No: CVA Tenderness - Left, CVA Tenderness - Right Extremities: Yes: WNL Edema: No Psychiatric: Yes: Alert Labs: CBC, BMP 05/09/18 06:40 05/09/18 06:40 Microbiology 05/08/18 12:45 Blood - Peripheral Venous Blood Culture - Preliminary NO GROWTH OBTAINED AFTER 24 HOURS, INCUBATION TO CONTINUE FOR 4 DAYS. 05/08/18 12:50 Blood - Peripheral Venous Blood Culture - Preliminary NO GROWTH OBTAINED AFTER 24 HOURS, INCUBATION TO CONTINUE FOR 4 DAYS. Imaging - Results Chest X-ray: Report Reviewed Cat Scan: Report Reviewed Problem List - Problems (1) Altered mental status Code(s): R41.82 - ALTERED MENTAL STATUS, UNSPECIFIED (2) UTI (urinary tract infection) Code(s): N39.0 - URINARY TRACT INFECTION, SITE NOT SPECIFIED (3) Elevated LFTs Code(s): R79.89 - OTHER SPECIFIED ABNORMAL FINDINGS OF BLOOD CHEMISTRY (4) Seizure Code(s): R56.9 - UNSPECIFIED CONVULSIONS (5) Rhabdomyolysis Code(s): M62.82 - RHABDOMYOLYSIS Assessment/Plan suspect lethargy due to uti suspect elevated cpk due to recent seizure lfts improving-may be due to elevated cpk mental status back at baseline switch to rocephin f/u cultures iv hydration
[2018-05-09] MEDS ORDERED: cefTRIAXone SODIUM 1 GM VIAL ONE (16:32)
[2018-05-09] MEDS: ARIPiprazole 10 MG TABLET PO SCH (17:01)
[2018-05-09] MEDS: CEFTRIAXONE 1 GM in DEXTROSE 5%-WATER - 50 ML IVPB SCH (17:01)
--- NOTE | 2018-05-09 17:17 | EKG ---
Test Reason : Blood Pressure : / mmHG Vent. Rate : 059 BPM Atrial Rate : 059 BPM P-R Int : 200 ms QRS Dur : 106 ms QT Int : 404 ms P-R-T Axes : 045 -27 018 degrees QTc Int : 399 ms SINUS BRADYCARDIA OTHERWISE NORMAL ECG NO PREVIOUS ECGS AVAILABLE BASELINE ARTIFACT Confirmed by SARAY ONEIL, CARLITO ([id number]) on 05/09/2018 5:17:19 PM Referred By: Confirmed By:CARLITO SO MD
[2018-05-10] MEDS: clonazePAM 0.5 MG TABLET PO SCH (06:17)
[2018-05-10] MEDS: lamoTRIgine 25 MG TABLET PO SCH (06:17)
[2018-05-10 07:39] LABS: HEMATOCRIT 31.1 % (32.4-45.2); HEMOGLOBIN 10.2 GM/dL (10.7-15.3); MCH 28.8 pg (25.7-33.7); MCHC 32.9 g/dl (32.0-36.0); MEAN CELL VOLUME 87.4 fl (80-96); MEAN PLT VOLUME 8.9 fl (7.5-11.1); PLATELET COUNT 185 K/MM3 (134-434); RBC 3.56 M/mm3 (3.60-5.2); RDW 14.1 % (11.6-15.6); WHITE BLOOD COUNT 4.2 K/mm3 (4.0-10.0)
[2018-05-10] MEDS ORDERED: PARoxetine HCL 10 MG TABLET (FP) ONE (08:25)
[2018-05-10] MEDS ORDERED: PT OWN MED DRAWER 7, Y5N ONE (08:26)
[2018-05-10] MEDS ORDERED: cefTRIAXone SODIUM 1 GM VIAL ONE (08:26)
[2018-05-10] MEDS ORDERED: DEXTROSE 5%-WATER - 50 ML IVPB ONE (08:26)
[2018-05-10] MEDS: ENOXAPARIN NA (PORCINE) 40 MG/0.4 ML DISP.SYRIN SQ SCH (10:37)
[2018-05-10] MEDS: CEFTRIAXONE 1 GM in DEXTROSE 5%-WATER - 50 ML IVPB SCH (10:37)
[2018-05-10] MEDS: lamoTRIgine 100 MG TABLET (FP) PO SCH (10:38)
[2018-05-10] MEDS: levETIRAcetam 500 MG TABLET (FP) PO SCH (10:38)
[2018-05-10] MEDS: LACOSAMIDE 50 MG TABLET PO SCH (10:38)
[2018-05-10] MEDS: PARoxetine HCL 20 MG TABLET (FP) PO SCH (10:38)
[2018-05-10] MEDS: ARIPiprazole 10 MG TABLET PO SCH (10:39)
--- NOTE | 2018-05-10 13:47 | PN ---
Progress Note (short form) - Note Progress Note: awake and alert nonverbal Vital Signs Period Temp Pulse Resp BP Sys/Yin Pulse Ox Last 24 Hr 96.5 F-98.6 F 61-87 18-20 100-127/54-79 94 cor-rrr lungs clear abd soft,nt ext no edema CBC, BMP 05/10/18 06:00 05/09/18 06:40 Microbiology 05/08/18 12:45 Blood - Peripheral Venous Blood Culture - Preliminary NO GROWTH OBTAINED AFTER 48 HOURS, INCUBATION TO CONTINUE FOR 3 DAYS. 05/08/18 12:50 Blood - Peripheral Venous Blood Culture - Preliminary NO GROWTH OBTAINED AFTER 48 HOURS, INCUBATION TO CONTINUE FOR 3 DAYS. 05/08/18 17:35 Urine - Urine Clean Catch Urine Culture - Final NO GROWTH OBTAINED a/p cultures negative day #3 antibiotics -will d/c ceftriaxone lethargy has resolved Problem List - Problems (1) Altered mental status Code(s): R41.82 - ALTERED MENTAL STATUS, UNSPECIFIED (2) UTI (urinary tract infection) Code(s): N39.0 - URINARY TRACT INFECTION, SITE NOT SPECIFIED (3) Elevated LFTs Code(s): R79.89 - OTHER SPECIFIED ABNORMAL FINDINGS OF BLOOD CHEMISTRY (4) Seizure Code(s): R56.9 - UNSPECIFIED CONVULSIONS (5) Rhabdomyolysis Code(s): M62.82 - RHABDOMYOLYSIS
--- NOTE | 2018-05-10 14:11 | DS ---
Physical Exam: SUBJECTIVE: Patient seen and examined at bedside. No acute distress OBJECTIVE: Vital Signs Period Temp Pulse Resp BP Sys/Yin Pulse Ox Last 24 Hr 96.5 F-98.6 F 61-87 18-20 100-127/54-79 94 PHYSICAL EXAM GENERAL: A&Ox0, no acute distress EYES: PERRLA, EOMI ENT: Moist mucus membranes, poor dentition NECK: No JVD LUNGS: CTA, no wheezes HEART: RRR, systolic murmur noted on exam ABDOMEN: Soft, nontender, BS present EXTREMITIES: 2+ pulses, no edema, no skin rashes NEUROLOGICAL: reflexes 2/4, unable to assess cranial nerves LABS Laboratory Results - last 24 hr 05/10/18 05/10/18 06:00 06:00 WBC 4.2 RBC 3.56 L Hgb 10.2 L Hct 31.1 L MCV 87.4 MCH 28.8 MCHC 32.9 RDW 14.1 Plt Count 185 MPV 8.9 Magnesium 1.9 HOSPITAL COURSE: Date of Admission:05/08/18 53 year old female with a history of seizures, MR, gastritis (H pylori), urinary incontinence, multiple UTIs, presented to the hospital for altered mental status 2 days duration. Patient's aid states that at baseline, patient is non-verbal but is able to ambulate with an abnormal gait and can feed herself. Aid noticed that patient was not able to feed herself and felt too weak to move, and so they brought patient to emergency department as this was off her baseline. On presentation, patient was hypothermic to 95 degrees, although her mental status had improved nearly to baseline within several hours of presentation. Patient was catheterized for a urine sample, which revealed a urinary tract infection. She was started on zosyn in the ED and then switched to ceftriaxone. She remained on ceftriaxone for 2 more days, after which the urine cultures were found to be negative. Her antibiotic were stopped by infectious disease specialist and patient was discharged home with instructions to stay hydrated and follow with her home doctor within 1 week of discharge. Date of Discharge: 05/10/18 Minutes to complete discharge: 35 Discharge Summary Reason For Visit: ALTERED MENTAL STATUS Current Active Problems Altered mental status (Acute) Rhabdomyolysis (Acute) Seizure (Acute) UTI (urinary tract infection) (Acute) Condition: Improved - Instructions Diet, Activity, Other Instructions: #Hospital Course Patient was admitted to the hospital for the treatment of urinary tract infection. She was treated with 3 days of antibiotics. Her mental status returned to baseline, and her temperature became stable. Urine cultures did not grow bacteria. #Further Instructions She is able to be discharged home without antibiotics today. Please make sure that the patient receives adequate hydration at home. Please have the patient follow with her home doctor within 1 week of discharge. She is able to resume all of her home medications as previously prescribed. If patient experiences fevers, chills, severe nausea/vomiting, changes to her mental status, please have her return to the emergency room. Disposition: HOME - Home Medications Comprehensive Discharge Medication List: Ambulatory Orders Aripiprazole 10 mg PO DAILY 05/08/18 Clonazepam 0.25 mg PO AM 05/08/18 Lacosamide [Vimpat] 1 each PO BID 05/08/18 Lamotrigine [Lamictal] 25 mg PO AM 05/08/18 Lamotrigine [Lamictal] 200 mg PO BID 05/08/18 Paroxetine HCl 20 mg PO DAILY 05/08/18 levETIRAcetam [Keppra -] 500 mg PO BID 05/08/18 This patient is new to me today: No Emergency Visit: No Critical Care patient: No - Discharge Referral Referred to [facility] Med P.C.: No
--- NOTE | 2018-05-10 14:13 | PN ---
Teaching Attending Note Name of Resident: Sebastian Clark ATTENDING PHYSICIAN STATEMENT I saw and evaluated the patient. I reviewed the resident's note and discussed the case with the resident. I agree with the resident's findings and plan as documented. SUBJECTIVE:resting comfortable OBJECTIVE: Last Vital Signs Temp Pulse Resp BP Pulse Ox 96.5 F L 72 18 100/58 L 94 L 05/10/18 10:41 05/10/18 10:41 05/10/18 10:41 05/10/18 10:41 05/09/18 21:00 General NAD, alert Abdomen soft NT/ND ASSESSMENT AND PLAN: 53yo f from [facility] with PMD seizure, MR, Domenic, urinary incontinence with frequent UTI presented to the ER wtih altered mental status for the past 2 days and noted to be hypothermia with suspected UTI 1. UTI- normothermic. abx switched to ceftriaxone yesterday. day 3 of total abx. Ucx is negative. no indication for further abx therapy. ID on board 2. Acute metabolic encephalopathy- likely due to infection and dehydration. Head CT negative for acute pathology. is alert. appears to be at baseline. 3. hypomagnesemia- resolve 4. Seizure- last seizure noted to be Friday. likely breakthrough due to infection. no adjustments made to medication. cont home medications 5. MR 6. Hpylori- unclear if it has been treated 7. DVT ppx- lovenox 8. d/c to [facility] off abx
[2018-05-10 14:24] VITALS: BP 116/56; PULSE 66; TEMP 97.3
[2018-05-12 00:06] LABS: LACOSAMIDE 7.7 ug/mL (5.0-10.0)
== END 2018-05-10 16:45 | disposition home or self-care (01) | DRG 689 ==
LOC: JER 11:11 → JERBED 17:52 → J7W 05-09 05:25
PROVIDERS: ADMIT Internal Medicine; ATTEND Internal Medicine
DX: N39.0 Urinary tract infection, site not specified (principal); G93.41 Metabolic encephalopathy; M62.82 Rhabdomyolysis; F73 Profound intellectual disabilities; R41.82 Altered mental status, unspecified; G40.909 Epilepsy, unspecified, not intractable, without status epilepticus; F41.9 Anxiety disorder, unspecified; E83.42 Hypomagnesemia; R79.89 Other specified abnormal findings of blood chemistry; D64.9 Anemia, unspecified; E86.0 Dehydration; R68.0 Hypothermia, not associated with low environmental temperature; M41.9 Scoliosis, unspecified
CPT/HCPCS: 36415; 70450-TC; 71045-TC-FY; 80053; 80175; 81003; 81015; 82465; 82550; 82553; 83605; 83718; 83721; 83735; 84100; 84484; 84703; 85025; 85027; 85610; 86850; 86900; 86901; 87040; 87086; 93005; 93010; 93971; 99285-25; G0480; J7030